=== PATIENT | male | born 1965 | race Hispanic/Latino ===

== ENCOUNTER 2018-01-12 13:15 | Inpatient (IN) | payer MEDICAID ==
[~2018-01-12] VITALS: Ht 172.7 cm; Wt 72.6 kg
[2018-01-12 13:58] LABS: BASOPHILS % (AUTO) 0.8 % (0.0-5.0); EOSINOPHILS % (AUTO) 1.4 % (0.0-8.0); HEMATOCRIT 43.2 % (42-54); MEAN CORPUSCULAR HEMOGLOBIN 30.4 pg (27.0-33.0); MEAN CORPUSCULAR HGB CONC 34.5 g/dL (32.0-36.0); MONOCYTES % (AUTO) 4.8 % (3.0-13.0); PLATELET COUNT (AUTO) 335 K/uL (130-400); RED BLOOD CELL COUNT(AUTO) 4.91 MIL/uL (4.50-6.20); WHITE BLOOD COUNT (AUTO) 8.2 K/uL (4.8-10.8)
[2018-01-12 14:14] LABS: ALBUMIN 3.1 g/dL (3.5-5.0); BILIRUBIN,TOTAL 0.3 mg/dL (0.2-1.0); CREATININE 1.1 mg/dL (0.5-1.5); POTASSIUM 4.5 mmol/L (3.5-5.1)
[2018-01-12 14:19] LABS: INR 0.86 (0.85-1.15); PARTIAL THROMBOPLASTIN TIME 28.5 SEC (26.3-35.5); PROTHROMBIN TIME 9.1 SEC (9.6-11.6)
[2018-01-12] MEDS ORDERED: ZOSYN 3.375GM+NS 50ML 50 ML IV ONE (15:17)
[2018-01-12] MEDS ORDERED: KETOROLAC TROMETHAMINE 15MG/ML ONE (15:42)
[2018-01-12] MEDS ORDERED: INSULIN HUMULIN R 100 UNIT/ML 3ML ONE (17:47)
[2018-01-12 18:35] VITALS: BP 112/72
[2018-01-12 19:00] VITALS: BP 100/72
[2018-01-12] MEDS ORDERED: VANCOMYCIN PROTOCOL PER PHARMACY IV SCH (20:15)
[2018-01-12] MEDS ORDERED: POTASSIUM CHLORIDE 20MEQ/100ML 100 ML IV PRN (20:15)
[2018-01-12] MEDS ORDERED: ONDANSETRON HCL MDV 20ML 2 MG/ML VIAL IVP PRN (20:15)
[2018-01-12] MEDS ORDERED: POTASSIUM CHLORIDE 10% ELIXIR 20 MEQ/15 ML UDCUP PO PRN (20:15)
[2018-01-12] MEDS ORDERED: GLUCAGON 1MG KIT 1 MG ML IM PRN (20:15)
[2018-01-12] MEDS ORDERED: LIDOCAINE HCL-MPF 1% 2ML VIAL IVP PRN (20:15)
[2018-01-12] MEDS ORDERED: POTASSIUM CHLORIDE 20 MEQ ERTAB PO PRN (20:15)
[2018-01-12] MEDS ORDERED: DEXTROSE 50%-WATER 50 ML DISP.SYRIN IV PRN (20:15)
[2018-01-12] MEDS ORDERED: MORPHINE SULFATE 4 MG/1ML SYG ONE (20:24)
[2018-01-12] MEDS: VANCOMYCIN 1GM+NS 250ML 250 ML IV SCH (21:14)
[2018-01-12] MEDS: INSULIN HUMULIN R 100 UNIT/ML 3ML SQ SCH (21:20)
[2018-01-12 23:00] VITALS: BP 108/74
[2018-01-12] MEDS: ZOSYN 3.375GM+NS 50ML 50 ML IV SCH (23:58)
[2018-01-12] MEDS: KETOROLAC TROMETHAMINE 30MG/ML IV PRN (23:59)
[2018-01-13] MEDS: SODIUM CHLORIDE 0.9% 1000ML 1,000 ML IV SCH ×2 (00:05→08:02)
[2018-01-13] MEDS ORDERED: IBUP-2077 PO (01:32)
[2018-01-13] MEDS ORDERED: CANA300T PO (01:32)
[2018-01-13] MEDS ORDERED: ATOR40TA69 PO (01:41)
[2018-01-13] MEDS ORDERED: ONDA8TAB12 PO (01:41)
[2018-01-13] MEDS ORDERED: CEPH500C2 PO (01:41)
[2018-01-13] MEDS ORDERED: SULF1TAB42 PO (01:41)
[2018-01-13] MEDS ORDERED: INSU100V12 SQ (01:42)
[2018-01-13 03:00] VITALS: BP 105/73
[2018-01-13] MEDS: MORPHINE SULFATE 4 MG/1ML SYG IVP PRN ×3 (03:27→20:20)
[2018-01-13] MEDS: ZOSYN 3.375GM+NS 50ML 50 ML IV SCH ×3 (06:17→20:19)
[2018-01-13] MEDS: KETOROLAC TROMETHAMINE 30MG/ML IV PRN (06:31)
[2018-01-13] MEDS: INSULIN HUMULIN R 100 UNIT/ML 3ML SQ SCH ×4 (06:37→20:28)
[2018-01-13 06:48] LABS: HEMATOCRIT 39.6 % (42-54); MEAN CORPUSCULAR HEMOGLOBIN 30.7 pg (27.0-33.0); MEAN CORPUSCULAR HGB CONC 34.6 g/dL (32.0-36.0); MEAN CORPUSCULAR VOLUME 88.7 fL (79-99); PLATELET COUNT (AUTO) 305 K/uL (130-400); RED BLOOD CELL COUNT(AUTO) 4.47 MIL/uL (4.50-6.20); RED CELL DISTRIBUTION WIDTH 13.2 % (11.0-15.5); WHITE BLOOD COUNT (AUTO) 6.9 K/uL (4.8-10.8)
[2018-01-13 07:00] VITALS: BP 112/75
[2018-01-13 07:02] LABS: POTASSIUM 4.6 mmol/L (3.5-5.1)
[2018-01-13 07:06] LABS: HEMOGLOBIN A1C 9.4 % (4.0-6.0)
[2018-01-13 07:51] LABS: ERYTHROCYTE SEDIMENTATION RATE 50 MM/HR (0-15)
[2018-01-13] MEDS: FAMOTIDINE 20MG TAB 20 MG TAB PO SCH ×2 (07:58→20:19)
[2018-01-13] MEDS: VANCOMYCIN 1GM+NS 250ML 250 ML IV SCH ×2 (08:01→20:19)
[2018-01-13] MEDS ORDERED: GADOBENATE DIMEGLUMINE 20 ML IV ONE (08:23)
[2018-01-13] MEDS ORDERED: ENOXAPARIN SODIUM 30 MG/0.3 ML SQ SCH (09:00)
[2018-01-13 11:00] VITALS: BP 110/78
[2018-01-13] MEDS: MUPIROCIN OINTMENT 22 GM TUBE TP SCH (13:57)
[2018-01-13] MEDS ORDERED: HYDROCODONE/ACETAMINOPHEN 5/325 MG TAB PO PRN (14:30)
[2018-01-13 15:00] VITALS: BP 113/72
[2018-01-13] MEDS: GEMFIBROZIL 600 MG TABLET PO SCH (16:45)
[2018-01-13] MEDS: ALPRAZOLAM 0.25 MG TABLET PO PRN (16:45)
[2018-01-13 19:00] VITALS: BP 117/73
[2018-01-13] MEDS ORDERED: DIPH,PERTUSS(ACELL),TET VAC/PF 0.5 ML VIAL IM ONE (19:00)
[2018-01-13 23:00] VITALS: BP 119/72
[2018-01-14] MEDS: ALPRAZOLAM 0.25 MG TABLET PO PRN ×3 (00:31→21:28)
[2018-01-14] MEDS: MORPHINE SULFATE 4 MG/1ML SYG IVP PRN ×5 (00:31→21:29)
[2018-01-14 03:00] VITALS: BP 123/82
[2018-01-14] MEDS: SODIUM CHLORIDE 0.9% 1000ML 1,000 ML IV SCH ×3 (03:57→12:40)
[2018-01-14 04:13] LABS: BASOPHILS % (AUTO) 0.4 % (0.0-5.0); EOSINOPHILS % (AUTO) 2.5 % (0.0-8.0); HEMATOCRIT 36.2 % (42-54); LYMPHOCYTES % (AUTO) 41.9 % (21.0-51.0); MEAN CORPUSCULAR HEMOGLOBIN 30.9 pg (27.0-33.0); MEAN CORPUSCULAR HGB CONC 34.8 g/dL (32.0-36.0); MEAN CORPUSCULAR VOLUME 88.8 fL (79-99); MONOCYTES % (AUTO) 6.1 % (3.0-13.0); NEUTROPHILS % (AUTO) 49.1 % (40.0-77.0); PLATELET COUNT (AUTO) 255 K/uL (130-400); RED BLOOD CELL COUNT(AUTO) 4.08 MIL/uL (4.50-6.20); WHITE BLOOD COUNT (AUTO) 6.1 K/uL (4.8-10.8)
[2018-01-14 04:27] LABS: CREATININE 1.1 mg/dL (0.5-1.5); POTASSIUM 4.4 mmol/L (3.5-5.1)
[2018-01-14] MEDS: ZOSYN 3.375GM+NS 50ML 50 ML IV SCH ×3 (05:18→20:27)
[2018-01-14] MEDS: GEMFIBROZIL 600 MG TABLET PO SCH ×2 (06:37→16:20)
[2018-01-14] MEDS: INSULIN HUMULIN R 100 UNIT/ML 3ML SQ SCH ×4 (06:45→21:00)
[2018-01-14 07:45] VITALS: BP 125/73
[2018-01-14] MEDS: VANCOMYCIN 1GM+NS 250ML 250 ML IV SCH (07:46)
[2018-01-14] MEDS: FAMOTIDINE 20MG TAB 20 MG TAB PO SCH ×2 (07:46→20:44)
[2018-01-14] MEDS: ENOXAPARIN SODIUM 30 MG/0.3 ML SQ SCH (07:47)
[2018-01-14] MEDS: MUPIROCIN OINTMENT 22 GM TUBE TP SCH (07:49)
[2018-01-14] MEDS ORDERED: IBUPROFEN 800 MG TAB PO PRN (11:45)
[2018-01-14 11:51] VITALS: BP 119/73
[2018-01-14 16:00] VITALS: BP 122/76
[2018-01-14 19:00] VITALS: BP 113/73
[2018-01-14] MEDS: ATORVASTATIN CALCIUM 40 MG TABLET PO SCH (20:44)
[2018-01-14] MEDS: INSULIN GLARGINE 100 UNITS/ML 10 ML VIAL SQ SCH (20:57)
[2018-01-14] MEDS ORDERED: COMPOUND IV REFRIGERATED 1 EACH IVSOLN MISC PRN (21:45)
[2018-01-14] MEDS ORDERED: VANCOMYCIN 1.75 GM in SODIUM CHLORIDE 0.9% 250 ML IV ONE (22:00)
[2018-01-14 23:00] VITALS: BP 106/75
[2018-01-15 03:00] VITALS: BP 121/72
[2018-01-15] MEDS: ZOSYN 3.375GM+NS 50ML 50 ML IV SCH ×3 (04:26→22:38)
[2018-01-15] MEDS: MORPHINE SULFATE 4 MG/1ML SYG IVP PRN ×5 (04:27→22:38)
[2018-01-15 08:00] VITALS: BP 121/78
[2018-01-15] MEDS: SODIUM CHLORIDE 0.9% 1000ML 1,000 ML IV SCH ×3 (08:12→21:02)
[2018-01-15] MEDS: VANCOMYCIN 1.5 GM in SODIUM CHLORIDE 0.9% 250 ML IV SCH ×2 (08:12→20:38)
[2018-01-15] MEDS: GEMFIBROZIL 600 MG TABLET PO SCH ×2 (08:13→16:39)
[2018-01-15] MEDS: INSULIN HUMULIN R 100 UNIT/ML 3ML SQ SCH ×4 (08:22→20:29)
[2018-01-15] MEDS: FAMOTIDINE 20MG TAB 20 MG TAB PO SCH ×2 (09:26→20:41)
[2018-01-15] MEDS: ALPRAZOLAM 0.25 MG TABLET PO PRN ×2 (09:26→20:45)
[2018-01-15] MEDS: ENOXAPARIN SODIUM 30 MG/0.3 ML SQ SCH (09:26)
[2018-01-15] MEDS: INSULIN GLARGINE 100 UNITS/ML 10 ML VIAL SQ SCH ×2 (09:41→20:30)
[2018-01-15 11:00] VITALS: BP 135/78
[2018-01-15] MEDS: MUPIROCIN OINTMENT 22 GM TUBE TP SCH (13:56)
[2018-01-15 16:00] VITALS: BP 115/73
[2018-01-15 19:46] VITALS: BP 114/77
[2018-01-15] MEDS: ATORVASTATIN CALCIUM 40 MG TABLET PO SCH (20:41)
[2018-01-15] MEDS: HYDROCODONE/ACETAMINOPHEN 5/325 MG TAB PO PRN (20:44)
[2018-01-15 23:40] VITALS: BP 120/78
[2018-01-16] MEDS: VANCOMYCIN 1.5 GM in SODIUM CHLORIDE 0.9% 250 ML IV SCH ×4 (00:35→23:00)
[2018-01-16] MEDS: MORPHINE SULFATE 4 MG/1ML SYG IVP PRN ×5 (03:09→20:48)
[2018-01-16 04:00] VITALS: BP 122/74
[2018-01-16] MEDS: ZOSYN 3.375GM+NS 50ML 50 ML IV SCH ×3 (04:54→20:45)
[2018-01-16] MEDS: HYDROCODONE/ACETAMINOPHEN 5/325 MG TAB PO PRN ×3 (04:54→14:59)
[2018-01-16 05:09] LABS: HEMATOCRIT 36.3 % (42-54); MEAN CORPUSCULAR HEMOGLOBIN 30.7 pg (27.0-33.0); MEAN CORPUSCULAR HGB CONC 34.8 g/dL (32.0-36.0); MEAN CORPUSCULAR VOLUME 88.4 fL (79-99); PLATELET COUNT (AUTO) 251 K/uL (130-400); RED CELL DISTRIBUTION WIDTH 13.1 % (11.0-15.5); WHITE BLOOD COUNT (AUTO) 6.8 K/uL (4.8-10.8)
[2018-01-16 05:30] LABS: ALBUMIN 2.4 g/dL (3.5-5.0); BILIRUBIN,TOTAL 0.2 mg/dL (0.2-1.0); CREATININE 1.1 mg/dL (0.5-1.5); POTASSIUM 4.3 mmol/L (3.5-5.1); TOTAL PROTEIN, SERUM 5.8 g/dL (6.0-8.3)
[2018-01-16] MEDS: INSULIN HUMULIN R 100 UNIT/ML 3ML SQ SCH ×4 (06:27→20:56)
[2018-01-16] MEDS: GEMFIBROZIL 600 MG TABLET PO SCH ×3 (06:27→15:46)
[2018-01-16] MEDS: INSULIN GLARGINE 100 UNITS/ML 10 ML VIAL SQ SCH ×2 (07:55→20:56)
[2018-01-16] MEDS: ENOXAPARIN SODIUM 30 MG/0.3 ML SQ SCH (07:57)
[2018-01-16] MEDS: ALPRAZOLAM 0.25 MG TABLET PO PRN ×2 (07:58→20:47)
[2018-01-16 08:00] VITALS: BP 120/68
[2018-01-16] MEDS: FAMOTIDINE 20MG TAB 20 MG TAB PO SCH ×2 (10:25→20:47)
[2018-01-16] MEDS: MUPIROCIN OINTMENT 22 GM TUBE TP SCH (10:25)
[2018-01-16] MEDS: NICOTINE 14 MG/ 24 HR PATCH TD SCH (10:39)
[2018-01-16 11:00] VITALS: BP 119/78
[2018-01-16 16:00] VITALS: BP 120/52
[2018-01-16] MEDS: SODIUM CHLORIDE 0.9% 1000ML 1,000 ML IV SCH (16:00)
[2018-01-16 19:00] VITALS: BP 120/71
[2018-01-16] MEDS: ATORVASTATIN CALCIUM 40 MG TABLET PO SCH (20:47)
[2018-01-16 23:00] VITALS: BP 108/68
[2018-01-17] MEDS: SODIUM CHLORIDE 0.9% 1000ML 1,000 ML IV SCH ×3 (00:27→20:56)
[2018-01-17] MEDS: MORPHINE SULFATE 4 MG/1ML SYG IVP PRN ×6 (01:02→22:50)
[2018-01-17 03:00] VITALS: BP 110/68
[2018-01-17] MEDS: ZOSYN 3.375GM+NS 50ML 50 ML IV SCH ×3 (05:19→20:55)
[2018-01-17] MEDS: INSULIN HUMULIN R 100 UNIT/ML 3ML SQ SCH ×4 (06:00→21:04)
[2018-01-17] MEDS: GEMFIBROZIL 600 MG TABLET PO SCH ×2 (06:46→16:58)
[2018-01-17 08:00] VITALS: BP 121/64
[2018-01-17] MEDS: NICOTINE 14 MG/ 24 HR PATCH TD SCH (09:31)
[2018-01-17] MEDS: FAMOTIDINE 20MG TAB 20 MG TAB PO SCH ×2 (09:31→20:55)
[2018-01-17] MEDS: ENOXAPARIN SODIUM 30 MG/0.3 ML SQ SCH (09:32)
[2018-01-17] MEDS: INSULIN GLARGINE 100 UNITS/ML 10 ML VIAL SQ SCH ×2 (09:39→21:03)
[2018-01-17] MEDS: ALPRAZOLAM 0.25 MG TABLET PO PRN ×2 (09:47→22:50)
[2018-01-17 12:00] VITALS: BP 127/82
[2018-01-17] MEDS: HYDROCODONE/ACETAMINOPHEN 5/325 MG TAB PO PRN (12:22)
[2018-01-17] MEDS: VANCOMYCIN 1.5 GM in SODIUM CHLORIDE 0.9% 250 ML IV SCH ×2 (12:22→22:50)
[2018-01-17 15:46] VITALS: BP 133/73
[2018-01-17] MEDS: MUPIROCIN OINTMENT 22 GM TUBE TP SCH (16:58)
[2018-01-17 19:00] VITALS: BP 126/72
[2018-01-17] MEDS: ATORVASTATIN CALCIUM 40 MG TABLET PO SCH (20:54)
[2018-01-17 23:00] VITALS: BP 118/70
[2018-01-18] VITALS (25 sets, daily range): BP systolic 82–135; BP diastolic 40–86
[2018-01-18] MEDS: MORPHINE SULFATE 4 MG/1ML SYG IVP PRN ×4 (03:01→16:59)
[2018-01-18] MEDS: ZOSYN 3.375GM+NS 50ML 50 ML IV SCH ×3 (05:20→20:16)
[2018-01-18] MEDS ORDERED: BUPIVACAINE/PF 0.5% 30ML VIAL ONE (06:11)
[2018-01-18] MEDS ORDERED: LIDOCAINE HCL 1% 20 ML VIAL ONE (06:11)
[2018-01-18 06:19] LABS: HEMATOCRIT 35.6 % (42-54); MEAN CORPUSCULAR HEMOGLOBIN 31.2 pg (27.0-33.0); MEAN CORPUSCULAR HGB CONC 35.3 g/dL (32.0-36.0); MEAN CORPUSCULAR VOLUME 88.6 fL (79-99); PLATELET COUNT (AUTO) 259 K/uL (130-400); RED BLOOD CELL COUNT(AUTO) 4.02 MIL/uL (4.50-6.20); RED CELL DISTRIBUTION WIDTH 13.1 % (11.0-15.5); WHITE BLOOD COUNT (AUTO) 6.5 K/uL (4.8-10.8)
[2018-01-18 06:35] LABS: ALBUMIN 2.5 g/dL (3.5-5.0); BILIRUBIN,TOTAL 0.2 mg/dL (0.2-1.0); CREATININE 0.8 mg/dL (0.5-1.5); POTASSIUM 4.4 mmol/L (3.5-5.1)
[2018-01-18] MEDS: INSULIN HUMULIN R 100 UNIT/ML 3ML SQ SCH ×4 (06:38→20:27)
[2018-01-18] MEDS ORDERED: DEXAMETHASONE SOD PHOSPHATE 10MG/ML 1ML VIAL ONE (07:02)
[2018-01-18] MEDS ORDERED: GLYCOPYRROLATE 0.2 MG/ML 5 ML VIAL ONE (07:02)
[2018-01-18] MEDS ORDERED: LIDOCAINE PF 2% 5ML ABBOJECT ONE (07:02)
[2018-01-18] MEDS ORDERED: ONDANSETRON HCL 4 MG/2 ML VIAL ONE (07:02)
[2018-01-18] MEDS ORDERED: MIDAZOLAM HCL 1 MG/ML 2ML VIAL ONE (07:02)
[2018-01-18] MEDS ORDERED: FENTANYL CITRATE PF 50 MCG/1 ML 2ML VIAL ONE (07:02)
[2018-01-18] MEDS ORDERED: PROPOFOL 10 MG/ML 20ML VIAL IV ONE (07:02)
[2018-01-18] MEDS: SODIUM CHLORIDE 0.9% 1000ML 1,000 ML IV SCH ×3 (07:03→23:03)
[2018-01-18] MEDS ORDERED: MEPERIDINE-PF 25 MG/ML SYG ONE ×2 (07:54→08:05)
[2018-01-18] MEDS: MUPIROCIN OINTMENT 22 GM TUBE TP SCH (09:00)
[2018-01-18] MEDS: ENOXAPARIN SODIUM 30 MG/0.3 ML SQ SCH (09:00)
[2018-01-18] MEDS: GEMFIBROZIL 600 MG TABLET PO SCH ×2 (09:45→16:37)
[2018-01-18] MEDS: FAMOTIDINE 20MG TAB 20 MG TAB PO SCH ×2 (09:45→20:16)
[2018-01-18] MEDS: NICOTINE 14 MG/ 24 HR PATCH TD SCH (09:46)
[2018-01-18] MEDS: INSULIN GLARGINE 100 UNITS/ML 10 ML VIAL SQ SCH ×2 (10:04→20:34)
[2018-01-18] MEDS: ALPRAZOLAM 0.25 MG TABLET PO PRN ×2 (12:15→23:02)
[2018-01-18] MEDS: HYDROCODONE/ACETAMINOPHEN 5/325 MG TAB PO PRN ×3 (12:22→23:02)
[2018-01-18] MEDS: VANCOMYCIN 1.5 GM in SODIUM CHLORIDE 0.9% 250 ML IV SCH (12:31)
[2018-01-18] MEDS: ATORVASTATIN CALCIUM 40 MG TABLET PO SCH (20:16)
[2018-01-18] MEDS: VANCOMYCIN 1.25 GM in SODIUM CHLORIDE 0.9% 250 ML IV SCH (20:16)
[2018-01-18] MEDS: HYDROMORPHONE HCL 0.5 MG/0.5 ML ML IVP PRN (20:17)
[2018-01-19] MEDS: HYDROMORPHONE HCL 0.5 MG/0.5 ML ML IVP PRN ×6 (00:33→23:50)
[2018-01-19 03:17] VITALS: BP 124/76
[2018-01-19] MEDS: ZOSYN 3.375GM+NS 50ML 50 ML IV SCH ×3 (04:32→20:03)
[2018-01-19 05:05] LABS: BASOPHILS % (AUTO) 0.2 % (0.0-5.0); EOSINOPHILS % (AUTO) 1.6 % (0.0-8.0); HEMATOCRIT 34.9 % (42-54); LYMPHOCYTES % (AUTO) 19.5 % (21.0-51.0); MEAN CORPUSCULAR HEMOGLOBIN 31.3 pg (27.0-33.0); MEAN CORPUSCULAR HGB CONC 35.1 g/dL (32.0-36.0); MONOCYTES % (AUTO) 9.6 % (3.0-13.0); NEUTROPHILS % (AUTO) 69.1 % (40.0-77.0); PLATELET COUNT (AUTO) 245 K/uL (130-400); RED BLOOD CELL COUNT(AUTO) 3.92 MIL/uL (4.50-6.20); RED CELL DISTRIBUTION WIDTH 13.4 % (11.0-15.5); WHITE BLOOD COUNT (AUTO) 8.4 K/uL (4.8-10.8)
[2018-01-19 05:16] LABS: CREATININE 1.1 mg/dL (0.5-1.5); POTASSIUM 4.2 mmol/L (3.5-5.1)
[2018-01-19] MEDS: HYDROCODONE/ACETAMINOPHEN 5/325 MG TAB PO PRN ×2 (05:51→22:23)
[2018-01-19] MEDS: INSULIN HUMULIN R 100 UNIT/ML 3ML SQ SCH ×4 (07:30→21:00)
[2018-01-19 08:00] VITALS: BP 117/69
[2018-01-19] MEDS: GEMFIBROZIL 600 MG TABLET PO SCH ×2 (09:00→14:48)
[2018-01-19] MEDS: NICOTINE 14 MG/ 24 HR PATCH TD SCH (09:00)
[2018-01-19] MEDS: MUPIROCIN OINTMENT 22 GM TUBE TP SCH (09:00)
[2018-01-19] MEDS: ALPRAZOLAM 0.25 MG TABLET PO PRN ×3 (09:00→22:22)
[2018-01-19] MEDS: FAMOTIDINE 20MG TAB 20 MG TAB PO SCH ×2 (09:00→20:03)
[2018-01-19] MEDS: MORPHINE SULFATE 4 MG/1ML SYG IVP PRN (09:01)
[2018-01-19] MEDS: ENOXAPARIN SODIUM 30 MG/0.3 ML SQ SCH (09:03)
[2018-01-19] MEDS: INSULIN GLARGINE 100 UNITS/ML 10 ML VIAL SQ SCH ×2 (10:13→20:13)
[2018-01-19] MEDS: SODIUM CHLORIDE 0.9% 1000ML 1,000 ML IV SCH (11:39)
[2018-01-19] MEDS: VANCOMYCIN 1.25 GM in SODIUM CHLORIDE 0.9% 250 ML IV SCH ×2 (11:39→20:03)
[2018-01-19 12:00] VITALS: BP 139/85
[2018-01-19 16:00] VITALS: BP 116/77
[2018-01-19 19:00] VITALS: BP 126/76
[2018-01-19] MEDS: ATORVASTATIN CALCIUM 40 MG TABLET PO SCH (20:03)
[2018-01-19 23:00] VITALS: BP 136/79
[2018-01-20 03:00] VITALS: BP 127/80
[2018-01-20] MEDS: HYDROCODONE/ACETAMINOPHEN 5/325 MG TAB PO PRN (03:06)
[2018-01-20 04:11] LABS: BASOPHILS % (AUTO) 0.3 % (0.0-5.0); EOSINOPHILS % (AUTO) 1.4 % (0.0-8.0); HEMATOCRIT 33.3 % (42-54); MEAN CORPUSCULAR HEMOGLOBIN 30.4 pg (27.0-33.0); MEAN CORPUSCULAR HGB CONC 34.2 g/dL (32.0-36.0); MEAN CORPUSCULAR VOLUME 88.8 fL (79-99); NEUTROPHILS % (AUTO) 69.3 % (40.0-77.0); NUCLEATED RED BLOOD CELLS 0.1 % (0.0-0.19); PLATELET COUNT (AUTO) 233 K/uL (130-400); RED BLOOD CELL COUNT(AUTO) 3.75 MIL/uL (4.50-6.20); RED CELL DISTRIBUTION WIDTH 13.4 % (11.0-15.5); WHITE BLOOD COUNT (AUTO) 6.8 K/uL (4.8-10.8)
[2018-01-20 04:29] LABS: CREATININE 0.8 mg/dL (0.5-1.5); POTASSIUM 4.3 mmol/L (3.5-5.1)
[2018-01-20] MEDS: ZOSYN 3.375GM+NS 50ML 50 ML IV SCH (04:45)
[2018-01-20] MEDS: HYDROMORPHONE HCL 0.5 MG/0.5 ML ML IVP PRN ×2 (05:09→09:12)
[2018-01-20] MEDS: SODIUM CHLORIDE 0.9% 1000ML 1,000 ML IV SCH (05:09)
[2018-01-20] MEDS: INSULIN HUMULIN R 100 UNIT/ML 3ML SQ SCH ×2 (05:54→11:30)
[2018-01-20 08:00] VITALS: BP 120/79
[2018-01-20] MEDS: INSULIN GLARGINE 100 UNITS/ML 10 ML VIAL SQ SCH (08:37)
[2018-01-20] MEDS: ENOXAPARIN SODIUM 30 MG/0.3 ML SQ SCH (08:41)
[2018-01-20] MEDS: FAMOTIDINE 20MG TAB 20 MG TAB PO SCH (08:41)
[2018-01-20] MEDS: GEMFIBROZIL 600 MG TABLET PO SCH (08:41)
[2018-01-20] MEDS: NICOTINE 14 MG/ 24 HR PATCH TD SCH (08:42)
[2018-01-20 11:00] VITALS: BP 133/80
[2018-01-20] MEDS: VANCOMYCIN 1.25 GM in SODIUM CHLORIDE 0.9% 250 ML IV SCH (11:09)
[2018-01-20] MEDS ORDERED: HYDROMORPHONE 1 MG/1 ML AMP IVP SCH (12:00)
[2018-01-20] MEDS: MUPIROCIN OINTMENT 22 GM TUBE TP SCH (12:01)
== END 2018-01-20 13:46 | disposition home or self-care (01) | DRG 305 ==
LOC: EDH 13:15 → EDHIP 13:16 → 3AH 17:59
PROVIDERS: ADMIT Family Medicine; ATTEND Family Medicine
PROC: 0Y6M0Z9 Detachment at Right Foot, Partial 1st Ray, Open Approach (ICD-10-PCS; principal; 2018-01-18 07:00)
DX: E11.69 Type 2 diabetes mellitus with other specified complication (principal); E44.0 Moderate protein-calorie malnutrition; E11.65 Type 2 diabetes mellitus with hyperglycemia; M86.9 Osteomyelitis, unspecified; F17.200 Nicotine dependence, unspecified, uncomplicated; B35.1 Tinea unguium; L97.509 Non-pressure chronic ulcer of other part of unspecified foot with unspecified severity; L03.116 Cellulitis of left lower limb; E11.621 Type 2 diabetes mellitus with foot ulcer; F31.9 Bipolar disorder, unspecified; F43.10 Post-traumatic stress disorder, unspecified; E78.5 Hyperlipidemia, unspecified; I10 Essential (primary) hypertension; F17.210 Nicotine dependence, cigarettes, uncomplicated; L02.611 Cutaneous abscess of right foot; L03.031 Cellulitis of right toe; E66.9 Obesity, unspecified; G89.29 Other chronic pain; L60.0 Ingrowing nail; L97.519 Non-pressure chronic ulcer of other part of right foot with unspecified severity; S98.111A Complete traumatic amputation of right great toe, initial encounter; Z83.3 Family history of diabetes mellitus; Z89.419 Acquired absence of unspecified great toe; Z93.3 Colostomy status; Z68.24 Body mass index [BMI] 24.0-24.9, adult
CPT/HCPCS: 36415; 73660; 73720; 76700; 80048; 80053; 80061; 80202; 82948; 83036; 83605; 85025; 85027; 85610; 85651; 85730; 87040; 87070; 87076; 88305; 88311; 90715; 93971; 97039; A9577; J1100; J1170; J1650; J1815; J1885; J2001; J2175; J2250; J2270; J2405; J2543; J2704; J3010; J3370; J3490; J7030

== ENCOUNTER 2018-01-26 21:42 | Emergency (ER) | payer MEDICAID ==
[~2018-01-26 21:42] MED LIST: ATOR40TA69 PO; CANA300T PO; INSU100V12 SQ
[2018-01-26] MEDS ORDERED: HYDROCODONE/ACETAMINOPHEN 10/325 MG TAB ONE (21:53)
[2018-01-26 22:12] LABS: BASOPHILS % (AUTO) 0.6 % (0.0-5.0); EOSINOPHILS % (AUTO) 2.3 % (0.0-8.0); HEMATOCRIT 39.1 % (42-54); LYMPHOCYTES % (AUTO) 35.7 % (21.0-51.0); MEAN CORPUSCULAR HEMOGLOBIN 29.6 pg (27.0-33.0); MEAN CORPUSCULAR HGB CONC 33.8 g/dL (32.0-36.0); MEAN CORPUSCULAR VOLUME 87.6 fL (79-99); MONOCYTES % (AUTO) 7.1 % (3.0-13.0); NEUTROPHILS % (AUTO) 54.3 % (40.0-77.0); PLATELET COUNT (AUTO) 248 K/uL (130-400); RED BLOOD CELL COUNT(AUTO) 4.46 MIL/uL (4.50-6.20); RED CELL DISTRIBUTION WIDTH 13.5 % (11.0-15.5); WHITE BLOOD COUNT (AUTO) 5.1 K/uL (4.8-10.8)
[2018-01-26 22:20] LABS: POTASSIUM 4.2 mmol/L (3.5-5.1)
[2018-01-26 22:25] LABS: ALBUMIN 3.4 g/dL (3.5-5.0); BILIRUBIN,TOTAL 0.3 mg/dL (0.2-1.0); TOTAL PROTEIN, SERUM 7.7 g/dL (6.0-8.3)
[2018-01-26] MEDS ORDERED: INSULIN HUMULIN R 100 UNIT/ML 3ML ONE (23:09)
== END 2018-01-26 23:39 | disposition home or self-care (01) ==
LOC: EDH 21:42
DX: F11.20 Opioid dependence, uncomplicated (principal); E11.65 Type 2 diabetes mellitus with hyperglycemia; E78.5 Hyperlipidemia, unspecified; I10 Essential (primary) hypertension; Z87.891 Personal history of nicotine dependence
CPT/HCPCS: 36415; 80053; 85025; 96372; 99284; J1815

== ENCOUNTER → 2018-01-27 | Outpatient (CLI) | payer MEDICAID ==
[2018-01-27 15:28] VITALS: BP 130/83
== END | disposition home or self-care (01) ==
LOC: WHH 10:45
PROVIDERS: ATTEND Podiatrist Foot & Ankle Surgery
DX: S98.111A Complete traumatic amputation of right great toe, initial encounter (principal); E11.69 Type 2 diabetes mellitus with other specified complication; M86.8X7 Other osteomyelitis, ankle and foot; I10 Essential (primary) hypertension; E66.9 Obesity, unspecified; F11.20 Opioid dependence, uncomplicated; E11.65 Type 2 diabetes mellitus with hyperglycemia; F31.9 Bipolar disorder, unspecified; F17.210 Nicotine dependence, cigarettes, uncomplicated; Z68.24 Body mass index [BMI] 24.0-24.9, adult; Z87.891 Personal history of nicotine dependence; X58.XXXA Exposure to other specified factors, initial encounter; Y93.89 Activity, other specified; Y92.89 Other specified places as the place of occurrence of the external cause; Y99.8 Other external cause status
CPT/HCPCS: 99205; A4450

== ENCOUNTER 2018-02-10 10:10 | Outpatient (CLI) | payer MEDICAID ==
[2018-02-10 13:36] VITALS: BP 133/87
== END 2018-02-10 17:00 | disposition home or self-care (01) ==
LOC: WHH 10:10
PROVIDERS: ATTEND Podiatrist Foot & Ankle Surgery
DX: T87.89 Other complications of amputation stump (principal); E11.69 Type 2 diabetes mellitus with other specified complication; M86.8X7 Other osteomyelitis, ankle and foot; I10 Essential (primary) hypertension; E66.9 Obesity, unspecified; F11.20 Opioid dependence, uncomplicated; E11.65 Type 2 diabetes mellitus with hyperglycemia; E78.5 Hyperlipidemia, unspecified; F31.9 Bipolar disorder, unspecified; Z68.24 Body mass index [BMI] 24.0-24.9, adult; Z87.891 Personal history of nicotine dependence; Y83.5 Amputation of limb(s) as the cause of abnormal reaction of the patient, or of later complication, without mention of misadventure at the time of the procedure
CPT/HCPCS: 99214

== ENCOUNTER 2018-08-17 16:49 | Observation (INO) | payer MEDICAID ==
[~2018-08-17] VITALS: Ht 172.7 cm; Wt 78.9 kg
[2018-08-17] MEDS ORDERED: SODIUM CHLORIDE 0.9% 1000ML 1,000 ML IV ONE (17:01)
[2018-08-17 17:18] LABS: BASOPHILS % (AUTO) 0.5 % (0.0-5.0); EOSINOPHILS % (AUTO) 0.9 % (0.0-8.0); HEMATOCRIT 45.3 % (42-54); LYMPHOCYTES % (AUTO) 32.4 % (21.0-51.0); MEAN CORPUSCULAR HEMOGLOBIN 29.5 pg (27.0-33.0); MEAN CORPUSCULAR VOLUME 89.5 fL (79-99); NEUTROPHILS % (AUTO) 56.2 % (40.0-77.0); PLATELET COUNT (AUTO) 280 K/uL (130-400); RED BLOOD CELL COUNT(AUTO) 5.06 MIL/uL (4.50-6.20); RED CELL DISTRIBUTION WIDTH 14.3 % (11.0-15.5); WHITE BLOOD COUNT (AUTO) 12.5 K/uL (4.8-10.8)
[2018-08-17 17:26] LABS: CARBON DIOXIDE 20 mmol/L (21-32); CHLORIDE 98 mmol/L (101-111); CREATININE 2.1 mg/dL (0.5-1.5); GLOMERULAR FILTR. RATE CALC 35 mL/min (>60); GLUCOSE,RANDOM 181 mg/dL (70-105); POTASSIUM 3.8 mmol/L (3.5-5.1); SODIUM SERUM 136 mmol/L (136-145); UREA NITROGEN, BLOOD 14 mg/dL (7-18)
[2018-08-17 17:32] LABS: ALANINE AMINOTRANSFERASE 86 U/L (12-78); ALBUMIN 3.8 g/dL (3.5-5.0); ALCOHOL, BLOOD 38 mg/dL (0-10); ASPARTATE AMINOTRANSFERASE 134 U/L (10-37); BILIRUBIN,TOTAL 0.7 mg/dL (0.2-1.0)
[2018-08-17 17:36] LABS: ACETAMINOPHEN < 1 mcg/mL (10-29); SALICYLATE < 2.8 mg/dL (2.8-20.0)
[2018-08-17] MEDS ORDERED: ONDANSETRON HCL 4 MG/2 ML VIAL IV PRN (18:45)
[2018-08-17] MEDS ORDERED: ACETAMINOPHEN 325 MG TAB PO PRN (18:45)
[2018-08-17] MEDS ORDERED: NALOXONE HCL 0.4 MG/1 ML ML ONE (18:57)
[2018-08-18 00:12] LABS: APPEARANCE,URINE Clear (CLEAR); BILIRUBIN,URINE Negative (NEGATIVE); COLOR,URINE Yellow (YELLOW); GLUCOSE, URINE (UA) TRACE mg/dL (NEGATIVE); KETONES,URINE 15 mg/dL (NEGATIVE); LEUKOCYTE ESTERASE ,URINE Negative (NEGATIVE); NITRATE,URINE Negative (NEGATIVE); OCCULT BLOOD,URINE Negative (NEGATIVE); PROTEIN,URINE POS 1+ (NEGATIVE); UROBILINOGEN,URINE 0.2 mg/dL (0.2-1.0)
[2018-08-18 00:37] LABS: BACTERIA,URINE Rare /HPF (None Seen); RBC,URINE 0-1 /HPF (0-1); WBC,URINE 0-1 /HPF (0-1)
[2018-08-18 00:38] LABS: HYALINE CASTS, URINE 0-1 /LPF (0-1 /LPF); MUCUS,URINE Rare LPF (None Seen); SQUAMOUS EPITHELIAL CELL,UR 0-2 /HPF (0-2)
[2018-08-18 00:45] LABS: AMPHET/METH SCREEN,URINE NEGATIVE (NEGATIVE); BARBITURATE SCREEN, URINE NEGATIVE (NEGATIVE); BENZODIAZEPINES SCREEN,URINE POSITIVE (NEGATIVE); CANNABINOID SCREEN,URINE POSITIVE (NEGATIVE); COCAINE SCREEN,URINE POSITIVE (NEGATIVE); OPIATE SCREEN,URINE NEGATIVE (NEGATIVE); PHENCYCLIDINE SCREEN,URINE NEGATIVE (NEGATIVE)
[2018-08-18 06:13] LABS: HEMOGLOBIN A1C 8.6 % (4.0-6.0)
[2018-08-18 06:20] LABS: ALBUMIN 2.7 g/dL (3.5-5.0); BILIRUBIN,TOTAL 0.7 mg/dL (0.2-1.0); CREATININE 1.1 mg/dL (0.5-1.5); POTASSIUM 4.3 mmol/L (3.5-5.1)
[2018-08-18] MEDS: SODIUM CHLORIDE 0.9% 1000ML 1,000 ML IV SCH ×4 (08:03→22:39)
[2018-08-18] MEDS: ENOXAPARIN SODIUM 30 MG/0.3 ML SQ SCH (09:00)
[2018-08-18] MEDS: FAMOTIDINE/PF 20 MG/2 ML VIAL IV SCH ×3 (09:00→21:31)
[2018-08-18 14:50] VITALS: BP 131/70
[2018-08-18] MEDS ORDERED: INSU100V12 SQ (14:55)
[2018-08-18] MEDS ORDERED: LYRICA PO (14:55)
[2018-08-18] MEDS ORDERED: HYDROXYZINE PO (14:55)
[2018-08-18 19:50] VITALS: BP 147/74
[2018-08-18 23:15] VITALS: BP 99/58
[2018-08-19 03:07] VITALS: BP 109/56
[2018-08-19] MEDS: SODIUM CHLORIDE 0.9% 1000ML 1,000 ML IV SCH ×3 (04:03→10:11)
[2018-08-19] MEDS ORDERED: GLUCAGON 1MG KIT 1 MG ML IM PRN (04:15)
[2018-08-19] MEDS ORDERED: DEXTROSE 50%-WATER 50 ML DISP.SYRIN IV PRN (04:15)
[2018-08-19 04:47] LABS: ALBUMIN 2.3 g/dL (3.5-5.0); BILIRUBIN,TOTAL 0.3 mg/dL (0.2-1.0); POTASSIUM 3.8 mmol/L (3.5-5.1); TOTAL PROTEIN, SERUM 5.4 g/dL (6.0-8.3)
[2018-08-19] MEDS: INSULIN HUMULIN R 100 UNIT/ML 3ML SQ SCH ×2 (06:35→11:30)
[2018-08-19 08:00] VITALS: BP 119/68
[2018-08-19] MEDS: ENOXAPARIN SODIUM 30 MG/0.3 ML SQ SCH (10:12)
[2018-08-19] MEDS: FAMOTIDINE/PF 20 MG/2 ML VIAL IV SCH (10:12)
[2018-08-19 11:00] VITALS: BP 127/59
== END 2018-08-19 15:09 ==
LOC: EDH 16:49 → EDHIP 16:50 → 4CH 08-18 20:07
PROVIDERS: ADMIT Internal Medicine; ATTEND Internal Medicine
DX: T50.901A Poisoning by unspecified drugs, medicaments and biological substances, accidental (unintentional), initial encounter (principal); E11.65 Type 2 diabetes mellitus with hyperglycemia; E78.5 Hyperlipidemia, unspecified; I10 Essential (primary) hypertension; F31.9 Bipolar disorder, unspecified; F20.9 Schizophrenia, unspecified; F10.10 Alcohol abuse, uncomplicated; Y92.89 Other specified places as the place of occurrence of the external cause; Z79.4 Long term (current) use of insulin
CPT/HCPCS: 36415 ×3; 70450; 71045; 73630; 80053 ×3; 80061; 80305; 81001; 82948 ×2; 83036; 84484 ×2; 85025; 93005; 96361 ×2; 96372; 96374; 96376; 99291; G0378 ×46; G0480 ×2; G0481; J1650; J1815; J2310; J3490; J7030 ×2

== ENCOUNTER 2019-07-01 10:33 | Emergency (ER) | payer MEDICAID ==
[~2019-07-01 10:33] MED LIST changes: -ATOR40TA69 PO; -CANA300T PO; +HYDROXYZINE PO; +LYRICA PO
[2019-07-01] MEDS ORDERED: SODIUM CHLORIDE 0.9% 1000ML 1,000 ML IV ONE (13:13)
[2019-07-01 13:22] LABS: BASOPHILS % (AUTO) 0.5 % (0.0-5.0); EOSINOPHILS % (AUTO) 1.4 % (0.0-8.0); LYMPHOCYTES % (AUTO) 26.8 % (21.0-51.0); MEAN CORPUSCULAR HEMOGLOBIN 31.5 pg (27.0-33.0); MEAN CORPUSCULAR HGB CONC 34.5 g/dL (32.0-36.0); MEAN CORPUSCULAR VOLUME 91.4 fL (79-99); MONOCYTES % (AUTO) 5.4 % (3.0-13.0); NEUTROPHILS % (AUTO) 65.9 % (40.0-77.0); NUCLEATED RED BLOOD CELLS 0.2 % (0.0-0.19); PLATELET COUNT (AUTO) 155 K/uL (130-400); RED BLOOD CELL COUNT(AUTO) 5.14 MIL/uL (4.50-6.20); RED CELL DISTRIBUTION WIDTH 13.9 % (11.0-15.5); WHITE BLOOD COUNT (AUTO) 6.1 K/uL (4.8-10.8)
[2019-07-01 13:30] LABS: APPEARANCE,URINE Clear (CLEAR); BILIRUBIN,URINE Negative (NEGATIVE); COLOR,URINE Yellow (YELLOW); GLUCOSE, URINE (UA) >=1000 mg/dL (NEGATIVE); KETONES,URINE Negative (NEGATIVE); LEUKOCYTE ESTERASE ,URINE Negative (NEGATIVE); NITRATE,URINE Negative (NEGATIVE); OCCULT BLOOD,URINE Negative (NEGATIVE); PROTEIN,URINE Trace mg/dL (NEGATIVE); UROBILINOGEN,URINE 0.2 mg/dL (0.2-1.0)
[2019-07-01] MEDS ORDERED: KETOROLAC TROMETHAMINE 30MG/ML ONE (13:31)
[2019-07-01 13:40] LABS: BACTERIA,URINE Rare /HPF (None Seen); RBC,URINE 0-1 /HPF (0-1); WBC,URINE 0-1 /HPF (0-1)
[2019-07-01] MEDS ORDERED: INSULIN HUMULIN R 100 UNIT/ML 3ML ONE (13:56)
== END 2019-07-01 15:32 | disposition home or self-care (01) ==
LOC: EDH 10:33
DX: E11.65 Type 2 diabetes mellitus with hyperglycemia (principal); I10 Essential (primary) hypertension; E78.5 Hyperlipidemia, unspecified; F20.9 Schizophrenia, unspecified; F31.9 Bipolar disorder, unspecified; Z90.89 Acquired absence of other organs; Z72.0 Tobacco use
CPT/HCPCS: 36415; 80048; 81001; 82010; 82948 ×2; 85025; 96361; 96374; 96375; 99285; J1815; J1885; J7030

== ENCOUNTER 2019-11-21 12:58 | Emergency (ER) | payer MEDICAID ==
[2019-11-21] MEDS ORDERED: ASPIRIN 325 MG TABLET ONE (13:12)
[2019-11-21 13:32] LABS: BASOPHILS % (AUTO) 0.3 % (0.0-5.0); EOSINOPHILS % (AUTO) 0.5 % (0.0-8.0); MEAN CORPUSCULAR HEMOGLOBIN 30.7 pg (27.0-33.0); MEAN CORPUSCULAR HGB CONC 33.8 g/dL (32.0-36.0); MEAN CORPUSCULAR VOLUME 90.9 fL (79-99); MONOCYTES % (AUTO) 6.6 % (3.0-13.0); NEUTROPHILS % (AUTO) 74.3 % (40.0-77.0); PLATELET COUNT (AUTO) 157 K/uL (130-400); RED BLOOD CELL COUNT(AUTO) 4.95 MIL/uL (4.50-6.20); RED CELL DISTRIBUTION WIDTH 13.4 % (11.0-15.5); WHITE BLOOD COUNT (AUTO) 6.3 K/uL (4.8-10.8)
[2019-11-21 13:50] LABS: CREATININE 0.9 mg/dL (0.5-1.5); POTASSIUM 3.8 mmol/L (3.5-5.1)
[2019-11-21 13:55] LABS: ALBUMIN 3.6 g/dL (3.5-5.0); BILIRUBIN,TOTAL 0.8 mg/dL (0.2-1.0); TOTAL PROTEIN, SERUM 7.4 g/dL (6.0-8.3)
== END 2019-11-21 15:57 | disposition home or self-care (01) ==
LOC: EDH 12:58
DX: R07.89 Other chest pain (principal); F31.9 Bipolar disorder, unspecified; E11.9 Type 2 diabetes mellitus without complications; E78.5 Hyperlipidemia, unspecified; F12.10 Cannabis abuse, uncomplicated; F20.9 Schizophrenia, unspecified; F14.10 Cocaine abuse, uncomplicated; F43.10 Post-traumatic stress disorder, unspecified; Z72.0 Tobacco use
CPT/HCPCS: 36415; 71045; 80053; 84484; 85025; 93005

== ENCOUNTER 2021-02-11 15:35 | Emergency (ER) | payer MEDICAID, OTHER ==
[2021-02-11 16:02] LABS: BASOPHILS % (AUTO) 0.3 % (0.0-5.0); EOSINOPHILS % (AUTO) 0.3 % (0.0-8.0); HEMATOCRIT 44.9 % (42-54); LYMPHOCYTES % (AUTO) 21.2 % (21.0-51.0); MEAN CORPUSCULAR HEMOGLOBIN 31.5 pg (27.0-33.0); MONOCYTES % (AUTO) 9.8 % (3.0-13.0); NEUTROPHILS % (AUTO) 67.7 % (40.0-77.0); PLATELET COUNT (AUTO) 139 K/uL (130-400); RED BLOOD CELL COUNT(AUTO) 4.99 MIL/uL (4.50-6.20); RED CELL DISTRIBUTION WIDTH 12.2 % (11.0-15.5); WHITE BLOOD COUNT (AUTO) 3.1 K/uL (4.8-10.8)
[2021-02-11 16:30] LABS: ALBUMIN 3.2 g/dL (3.5-5.0); CREATININE 1.2 mg/dL (0.5-1.5); POTASSIUM 4.5 mmol/L (3.5-5.1)
[2021-02-11 16:33] LABS: BILIRUBIN,TOTAL 0.3 mg/dL (0.2-1.0); TOTAL PROTEIN, SERUM 6.8 g/dL (6.0-8.3)
== END 2021-02-11 17:03 | disposition left against medical advice (07) ==
LOC: EDH 15:35
DX: S91.102A Unspecified open wound of left great toe without damage to nail, initial encounter (principal); F31.9 Bipolar disorder, unspecified; F14.10 Cocaine abuse, uncomplicated; I10 Essential (primary) hypertension; E78.5 Hyperlipidemia, unspecified; E11.9 Type 2 diabetes mellitus without complications; F12.10 Cannabis abuse, uncomplicated; F20.9 Schizophrenia, unspecified; Z53.21 Procedure and treatment not carried out due to patient leaving prior to being seen by health care provider
CPT/HCPCS: 36415; 80053; 83605; 85025; 87040